=== PATIENT | female | born 1965 | race Caucasian/White ===

== ENCOUNTER 2017-04-07 23:08 | Inpatient (IN) | payer OTHER ==
[~2017-04-07] VITALS: Ht 172.7 cm; Wt 109.3 kg
[~2017-04-07 23:08] MED LIST: NITROFURANTOIN100 MG PO; TORADOL10 MG PO; ZOFRAN4 MG PO
[2017-04-08 12:35] VITALS: BP 128/76
[2017-04-08 20:09] LABS: HEMATOCRIT 28.3 % (36.0-46.0); HEMOGLOBIN 8.6 G/DL (11.9-15.5); MCH 23.1 PG (29.0-34.0); MCHC 30.4 G/DL (30.0-36.0); MCV 75.9 FL (83-99); PLATELET COUNT 272 K/uL (156-360); RBC DIS.WIDTH-CV 14.8 % (11.8-14.6); RBC DIS.WIDTH-SD 40.9 % (39-53); RED BLOOD COUNT 3.73 M/uL (3.80-5.20); WHITE BLOOD COUNT 10.1 K/uL (4.1-10.2)
[2017-04-08 20:10] VITALS: BP 155/78
[2017-04-08 20:32] LABS: CHLORIDE 106 MEQ/L (99-109); CREATININE 0.8 MG/DL (0.6-1.3); GFR ESTIMATE (CALCULATED) > 59 mL/min/; GLUCOSE 135 mg/dL (70-99); POTASSIUM 3.9 MEQ/L (3.7-5.4); SODIUM 139 MEQ/L (136-147); UREA NITROGEN (BUN) 18 mg/dL (9-23)
[2017-04-08 23:45] VITALS: BP 106/50
[2017-04-09 03:43] VITALS: BP 129/68
[2017-04-09 06:29] LABS: HEMATOCRIT 27.2 % (36.0-46.0); MCH 22.5 PG (29.0-34.0); MCHC 29.4 G/DL (30.0-36.0); MCV 76.4 FL (83-99); PLATELET COUNT 281 K/uL (156-360); RBC DIS.WIDTH-CV 14.6 % (11.8-14.6); RBC DIS.WIDTH-SD 40.8 % (39-53); RED BLOOD COUNT 3.56 M/uL (3.80-5.20); WHITE BLOOD COUNT 11.8 K/uL (4.1-10.2)
[2017-04-09 06:54] LABS: CHLORIDE 106 MEQ/L (99-109); CREATININE 0.7 MG/DL (0.6-1.3); GFR ESTIMATE (CALCULATED) > 59 mL/min/; GLUCOSE 171 mg/dL (70-99); POTASSIUM 4.2 MEQ/L (3.7-5.4); SODIUM 136 MEQ/L (136-147); UREA NITROGEN (BUN) 15 mg/dL (9-23)
[2017-04-09 07:59] VITALS: BP 106/61
[2017-04-09 11:07] VITALS: BP 115/63
[2017-04-09 16:11] VITALS: BP 118/56
[2017-04-09 19:30] VITALS: BP 109/55
[2017-04-09 23:33] VITALS: BP 124/60
[2017-04-10 03:36] VITALS: BP 133/61
[2017-04-10 06:23] LABS: HEMATOCRIT 25.4 % (36.0-46.0); HEMOGLOBIN 7.6 G/DL (11.9-15.5); MCH 22.5 PG (29.0-34.0); MCHC 29.9 G/DL (30.0-36.0); MCV 75.1 FL (83-99); PLATELET COUNT 250 K/uL (156-360); RBC DIS.WIDTH-SD 41.3 % (39-53); RED BLOOD COUNT 3.38 M/uL (3.80-5.20); WHITE BLOOD COUNT 10.5 K/uL (4.1-10.2)
[2017-04-10 07:16] LABS: CHLORIDE 105 MEQ/L (99-109); CREATININE 0.7 MG/DL (0.6-1.3); GFR ESTIMATE (CALCULATED) > 59 mL/min/; SODIUM 140 MEQ/L (136-147); UREA NITROGEN (BUN) 11 mg/dL (9-23)
[2017-04-10 07:18] VITALS: BP 143/70
[2017-04-10 07:27] LABS: GLUCOSE 104 mg/dL (70-99)
[2017-04-10] MEDS ORDERED: LOVENOX40 MG/0.4 SC (09:23)
[2017-04-10] MEDS ORDERED: TRAMADOL HCL50 MG PO (09:23)
[2017-04-10 10:37] LABS: APPEARANCE CLEAR ((CLEAR)); BILIRUBIN NEGATIVE; BLOOD MODERATE; COLOR YELLOW ((YELLOW)); GLUCOSE (STRIP) NEGATIVE; KETONES NEGATIVE; LEUKOCYTES NEGATIVE; NITRITE NEGATIVE; PROTEIN (STRIP) NEGATIVE; SPECIFIC GRAVITY 1.013 (1.000-1.030); UROBILINOGEN 0.2 MG/DL (0.2-1.0)
[2017-04-10 11:13] LABS: BACTERIA NONE SEEN /HPF; EPITHELIAL CELLS 1+ /HPF; MUCUS TRACE /LPF; WHITE BLOOD CELLS 0-5 /HPF (0-5)
== END 2017-04-10 11:45 | disposition home or self-care (01) | DRG 734 ==
LOC: ENRESERV 23:08 → 2SOUTH 04-08 12:14 → 2EASTP 04-08 12:14 → 2SOUTH 04-08 13:04 → ENRESERV 04-08 13:15 → 2SOUTH 04-08 15:20 → 2EASTP 04-08 19:16
PROVIDERS: Obstetrics & Gynecology Gynecologic Oncology
DX: C54.1 Malignant neoplasm of endometrium (principal); C77.5 Secondary and unspecified malignant neoplasm of intrapelvic lymph nodes; F06.4 Anxiety disorder due to known physiological condition; D64.9 Anemia, unspecified; F17.210 Nicotine dependence, cigarettes, uncomplicated
CPT/HCPCS: 36415; 80048; 81003; 84702; 85027; 86850; 86900; 86901; 86920; 88305; 88309; J0330; J0690; J1100; J1170; J1650; J2405; J2710; J2765; J3010; J7120